=== PATIENT | female | born 1950 | race Caucasian/White ===

== ENCOUNTER 2016-11-06 20:01 | Emergency (ER) | payer OTHER ==
[~2016-11-06] VITALS: Ht 162.6 cm; Wt 122.0 kg
[~2016-11-06 20:01] MED LIST: ALLEGRA ALLERG180 MG PO; AMBIEN 5 MG TABL5 M1 PO; FLEXERIL PO; IBUPROFEN 800800 M1 PO; LANSOPRAZOLE30 MG PO; LEVOTHYROXIN0.125 M1 PO; LEVOXYL137 MCG PO; LISINOPRIL10 MG PO; PREVACID 30MG C30 M1 PG; ZOFRAN ODT4 MG PO; ZOLOFT100 MG PO
[2016-11-06] MEDS ORDERED: ZESTRIL30 MG PO (20:57)
[2016-11-06] MEDS ORDERED: LEVOTHYROXIN0.112 M1 PO (20:57)
[2016-11-06] MEDS ORDERED: B12INJ IM (20:58)
[2016-11-06] MEDS ORDERED: PREVACID30 MG PO (20:58)
[2016-11-06] MEDS ORDERED: VITAMIN D 5050000 I1 PO (20:58)
[2016-11-06] MEDS ORDERED: ZOLOFT50 MG PO (20:58)
[2016-11-06] MEDS ORDERED: ULTRAM 50MG TAB50 MG PO (21:39)
[2016-11-06] MEDS ORDERED: CYCLOBENZAPRINE5 MG PO (21:40)
[2016-11-06] MEDS ORDERED: PREDNISONE 20 M20 MG PO (21:40)
[2016-11-06 21:57] VITALS: BP 139/88
== END 2016-11-06 21:59 | disposition home or self-care (01) ==
LOC: ER 20:01
DX: M25.511 Pain in right shoulder (principal); I10 Essential (primary) hypertension; E03.9 Hypothyroidism, unspecified; K21.9 Gastro-esophageal reflux disease without esophagitis; F32.9 Major depressive disorder, single episode, unspecified; F10.99 Alcohol use, unspecified with unspecified alcohol-induced disorder